=== PATIENT | male | born 1945 | race Caucasian/White ===

== ENCOUNTER 2016-08-04 20:35 | Emergency (ER) | payer MEDICARE, OTHER ==
[2016-08-04 20:51] VITALS: BP 111/74
--- NOTE | 2016-08-04 21:01 | UC ---
Skin Complaint HPI - HPI Summary HPI Summary: pt presents with c/o erythematous area on lower posterior aspect of left leg. Pt denies seeing tick on left leg, did not remove tick from left leg and deneis other injury or exposure. pt does state the "he lives in the [place]" and walks outside daily with shorts in nice weather. Pt noticed reddened area 3 days ago. erythema has not worsened since onset. - History of Current Complaint Chief Complaint: UCSkin Time Seen by Provider: 08/04/16 20:39 Stated Complaint: LFT LEG POSS BUG BITE Hx Obtained From: Patient Onset/Duration: Sudden Onset, Lasting Days - 3 Skin Exposure Onset/Duration: Days Ago - 3 Timing: Constant Onset Severity: Mild Current Severity: Mild Location: Discrete - left posterior left leg, Character: Redness Aggravating: Nothing Alleviating: Other - calamine lotion Associated Signs & Symptoms: Positive: Negative Related History: Possible Reaction to: Insect, Possible Reaction to: Environmental Exposure - Allergy/Home Medications Allergies/Adverse Reactions: Allergies Allergy/AdvReac Type Severity Reaction Status Date / Time No Known Allergies Allergy Verified 08/04/16 20:43 Home Medications: Home Medications Ibuprofen [Advil] 400 mg PO DAILY PRN 08/04/16 [History Confirmed 08/04/16] Lisinopril TAB* [Prinivil TAB*] 10 mg PO DAILY 08/04/16 [History Confirmed 08/04] Memory Medication 1 tab PO DAILY 08/04/16 [History] Simvastatin TAB(NF) [Zocor(NF)] 10 mg PO DAILY 08/04/16 [History Confirmed 08/04] Review of Systems Constitutional: Negative Skin: Other - erythema Eyes: Negative ENT: Negative Respiratory: Negative Cardiovascular: Negative Gastrointestinal: Negative Genitourinary: Negative Motor: Negative Neurovascular: Negative Musculoskeletal: Negative Neurological: Negative Psychological: Negative All Other Systems Reviewed And Are Negative: Yes PMH/Surg Hx/FS Hx/Imm Hx Previously Healthy: Yes - Surgical History Surgical History: Yes Surgery Procedure, Year, and Place: hernia - Family History Known Family History: Positive: Cardiac Disease - Social History Occupation: Retired Alcohol Use: Daily Alcohol Amount: 1 near beer daily Substance Use Type: None Smoking Status (MU): Former Smoker When Did the Patient Quit Smoking/Using Tobacco: 1970 Physical Exam Triage Information Reviewed: Yes Appearance: Well-Appearing Vital Signs: Initial Vital Signs Temp 99.5 F 08/04/16 20:46 Pulse 73 08/04/16 20:46 Resp 16 08/04/16 20:46 BP 111/74 08/04/16 20:46 Pulse Ox 96 08/04/16 20:46 Eye Exam: Normal Respiratory Exam: Normal Respiratory: Positive: No respiratory distress Musculoskeletal Exam: Normal Neurological Exam: Normal Psychological Exam: Normal Skin Exam: Other - dime size irregular shaped erythematous, flat, non vesicular area on posterior lower left posterior leg. Course/Dx - Differential Diagnoses - Skin Complaint Differential Diagnoses: Cellulitis, Tick Born Illness, Other - insect bite contact dermatitis. - Diagnoses Provider Diagnoses: insect bite,. contact dermatitis Discharge - Discharge Plan Condition: Stable Disposition: HOME Patient Education Materials: Insect Bite or Sting (ED) Referrals: Savage Hernandez MD [Primary Care Provider] - If Needed
== END 2016-08-04 21:05 | disposition home or self-care (01) ==
LOC: UCCORT 20:35
DX: L25.8 Unspecified contact dermatitis due to other agents (principal); S80.862A Insect bite (nonvenomous), left lower leg, initial encounter; W57.XXXA Bitten or stung by nonvenomous insect and other nonvenomous arthropods, initial encounter
CPT/HCPCS: 99211; G0463